=== PATIENT | female | born 1985 | race Caucasian/White ===

== ENCOUNTER → 2016-04-27 | Outpatient (CLI) | payer OTHER | END | disposition home or self-care (01) | LOC: PTH.S 03-06 08:45 | DX: I10 Essential (primary) hypertension (principal) ==

== ENCOUNTER → 2016-06-01 | Outpatient (CLI) | payer OTHER | END | disposition home or self-care (01) | LOC: PTH.S 15:51 | DX: E87.6 Hypokalemia (principal); I10 Essential (primary) hypertension ==

== ENCOUNTER → 2016-06-06 | Outpatient (CLI) | payer OTHER | END | disposition home or self-care (01) | LOC: PTH.S 12:45 | DX: E87.6 Hypokalemia (principal) ==

== ENCOUNTER → 2016-07-18 | Outpatient (CLI) | payer OTHER | END | disposition home or self-care (01) | LOC: PTH.S 06-06 13:30 | DX: R35.0 Frequency of micturition (principal); R39.15 Urgency of urination ==